=== PATIENT | female | born 1995 | race Hispanic/Latino ===

== ENCOUNTER 2020-07-17 11:51 | Emergency (ER) | payer OTHER ==
[2020-07-17 11:57] VITALS: BP 138/79
[2020-07-17] MEDS ORDERED: LIDOCAINE VISCOUS 2% 15 ML ORAL LIQD PO ONE (12:06)
[2020-07-17] MEDS ORDERED: ALUM-MAG HYDROXIDE-SIMETHICONE 200-200-20MG/5ML ORAL LIQD 30 ML PO ONE (12:06)
[2020-07-17] MEDS ORDERED: FAMOTIDINE 20 MG TAB PO ONE (12:06)
--- NOTE | 2020-07-17 12:06 | Emergency Department Report ---
ED Chest Pain HPI - General Chief Complaint: Chest Pain Stated Complaint: CHEST PAIN; V/D Time Seen by Provider: 07/17/20 12:04 Source: patient Mode of arrival: Ambulatory Limitations: No Limitations - History of Present Illness Initial Comments: 24-year-old female presents with complaints of chest pain along with nausea and vomiting and diarrhea x yesterday. Patient describes the pain in her chest as stabbing and rates it as a 4/10 in severity. She denies any past heart history, history of DVT/PE, leg pain/swelling, fever/chills/sweats, hormone use, hemoptysis, or cough. No hematemesis/coffee-ground emesis or melena/hematochezia per patient. She also denies abdominal pain. She does have a history of GERD and states she is currently taking Protonix. She is unsure about recent sick contacts. - Related Data Previous Rx's Medication Instructions Recorded Last Taken Type Ondansetron [Zofran Odt] 4 mg PO Q8HR PRN #6 tab.rapdis 07/17/20 Unknown Rx Sucralfate [Carafate] 1 gm PO Q6HR 4 Days #20 tablet 07/17/20 Unknown Rx Heart Score - HEART Score History: Slightly suspicious EKG: Normal Age: < 45 Risk factors: 1-2 risk factors Troponin: < normal limit HEART Score: 1 - Critical Actions Critical Actions: 0-3 pts:0.9-1.7%risk of adverse cardiac event.Candidate for discharge ED Review of Systems ROS: Stated complaint: CHEST PAIN; V/D Other details as noted in HPI Constitutional: denies: chills, diaphoresis, fever, malaise, weakness ENT: denies: throat pain Respiratory: denies: cough, shortness of breath Cardiovascular: chest pain. denies: palpitations, edema, syncope Endocrine: denies: excessive sweating Gastrointestinal: nausea, vomiting Genitourinary: denies: urgency, dysuria, frequency, hematuria Musculoskeletal: denies: back pain Skin: denies: change in color Neurological: denies: headache, weakness ED Past Medical Hx - Past Medical History Hx GERD: Yes - Surgical History Past Surgical History?: No - Social History Smoking Status: Never Smoker Substance Use Type: None - Medications Home Medications: Home Medications Medication Instructions Recorded Confirmed Last Taken Type Ondansetron [Zofran Odt] 4 mg PO Q8HR PRN #6 tab.rapdis 07/17/20 Unknown Rx Sucralfate [Carafate] 1 gm PO Q6HR 4 Days #20 tablet 07/17/20 Unknown Rx ED Physical Exam - General Limitations: No Limitations General appearance: alert, in no apparent distress, obese - Head Head exam: Present: atraumatic, normocephalic - Eye Eye exam: Present: normal appearance. Absent: scleral icterus - ENT ENT exam: Present: mucous membranes moist - Neck Neck exam: Present: normal inspection - Respiratory Respiratory exam: Present: normal lung sounds bilaterally. Absent: respiratory distress - Cardiovascular Cardiovascular Exam: Present: regular rate, normal rhythm. Absent: systolic murmur, diastolic murmur, rubs, gallop - GI/Abdominal GI/Abdominal exam: Present: soft, normal bowel sounds. Absent: distended, tenderness, guarding, rebound, rigid - Back Exam Back exam: Present: full ROM - Neurological Exam Neurological exam: Present: alert, oriented X3 - Psychiatric Psychiatric exam: Present: normal affect, normal mood - Skin Skin exam: Present: warm, dry, intact, normal color. Absent: rash, cyanosis, diaphoretic, ecchymosis ED Course Vital Signs 07/17/20 11:53 Temperature 98.1 F Pulse Rate 101 H Respiratory 18 Rate Blood Pressure 138/79 O2 Sat by Pulse 98 Oximetry ED Medical Decision Making - Lab Data Result diagrams: 07/17/20 12:08 07/17/20 12:08 Lab Results 07/17/20 07/17/20 07/17/20 Range/Units 12:08 12:08 12:08 WBC 9.4 (4.5-11.0) K/mm3 RBC 4.55 (3.65-5.03) M/mm3 Hgb 12.1 (10.1-14.3) gm/dl Hct 35.6 (30.3-42.9) % MCV 78 L (79-97) fl MCH 27 L (28-32) pg MCHC 34 (30-34) % RDW 14.7 (13.2-15.2) % Plt Count 291 (140-440) K/mm3 Lymph % (Auto) 28.7 (13.4-35.0) % [place] % (Auto) 3.0 (0.0-7.3) % Eos % (Auto) 1.7 (0.0-4.3) % Baso % (Auto) 0.3 (0.0-1.8) % Lymph # (Auto) 2.7 (1.2-5.4) K/mm3 [place] # (Auto) 0.3 (0.0-0.8) K/mm3 Eos # (Auto) 0.2 (0.0-0.4) K/mm3 Baso # (Auto) 0.0 (0.0-0.1) K/mm3 Seg Neutrophils % 66.3 (40.0-70.0) % Seg Neutrophils # 6.2 (1.8-7.7) K/mm3 Sodium 134 L (137-145) mmol/L Potassium 3.5 L (3.6-5.0) mmol/L Chloride 99.1 (98-107) mmol/L Carbon Dioxide 22 (22-30) mmol/L Anion Gap 16 mmol/L BUN 8 (7-17) mg/dL Creatinine 0.6 (0.6-1.2) mg/dL Estimated GFR > 60 ml/min BUN/Creatinine Ratio 13 % Glucose 246 H (65-100) mg/dL Calcium 9.3 (8.4-10.2) mg/dL Total Bilirubin 0.60 (0.1-1.2) mg/dL AST 45 H (5-40) units/L ALT 35 (7-56) units/L Alkaline Phosphatase 120 (35-129) units/L Troponin T < 0.010 (0.00-0.029) ng/mL Total Protein 8.2 (6.3-8.2) g/dL Albumin 4.0 (3.9-5) g/dL Albumin/Globulin Ratio 1.0 % Lipase 24 (13-60) units/L HCG, Qual Negative (Negative) - Radiology Data Radiology results: report reviewed CHEST 2 VIEWS INDICATION / CLINICAL INFORMATION: substernal chest pain. COMPARISON: 11/10/2011 FINDINGS: SUPPORT DEVICES: None. HEART / MEDIASTINUM: No significant abnormality. LUNGS / PLEURA: Mild increased interstitial prominence within the lower lungs with peribronchial cuffing. No pneumothorax. ADDITIONAL FINDINGS: No significant additional findings. IMPRESSION: 1. Mild increased interstitial prominence in the perihilar regions and lower lungs with peribronchial cuffing. - Medical Decision Making 24-year-old female presents with complaints of chest pain along with nausea and vomiting and diarrhea x yesterday. Patient describes the pain in her chest as stabbing and rates it as a 4/10 in severity. She denies any past heart history, history of DVT/PE, leg pain/swelling, fever/chills/sweats, hormone use, hemoptysis, or cough. No hematemesis/coffee-ground emesis or melena/hematochezia per patient. She also denies abdominal pain. She does have a history of GERD and states she is currently taking Protonix. She is unsure about recent sick contacts. Chest x-ray and labs are without acute abnormalities. Minimal hypokalemia noted-patient instructed to drink Pedialyte and eat a banana. She is stable for discharge home she is to follow-up with her primary care doctor within 3 days. Strict return precautions were discussed in detail with patient who verbalizes understanding peer Critical care attestation.: If time is entered above; I have spent that time in minutes in the direct care of this critically ill patient, excluding procedure time. ED Disposition Clinical Impression: Other chest pain, Viral syndrome Disposition: DC-01 TO HOME OR SELFCARE Is pt being admited?: No Condition: Stable Instructions: Nonspecific Chest Pain, Adult, Viral Illness, Adult, Chest Pain (ED) Prescriptions: Sucralfate [Carafate] 1 gm PO Q6HR 4 Days #20 tablet Ondansetron [Zofran Odt] 4 mg PO Q8HR PRN #6 tab.rapdis PRN Reason: Nausea Referrals: [facility] [Provider Group] - 3-5 Days Forms: Work/School Release Form(ED)
[2020-07-17 12:52] LABS: Basophils % (Auto) 0.3 % (0.0-1.8); Eosinophils # (Auto) 0.2 K/mm3 (0.0-0.4); Eosinophils % (Auto) 1.7 % (0.0-4.3); Hematocrit 35.6 % (30.3-42.9); Hemoglobin 12.1 gm/dl (10.1-14.3); Lymphocytes # (Auto) 2.7 K/mm3 (1.2-5.4); Lymphocytes % (Auto) 28.7 % (13.4-35.0); Mean Corpuscular HGB Conc 34 % (30-34); Mean Corpuscular Volume 78 fl (79-97); Monocytes # (Auto) 0.3 K/mm3 (0.0-0.8); Platelet Count 291 K/mm3 (140-440); Red Blood Count 4.55 M/mm3 (3.65-5.03); Red Cell Distribution Width 14.7 % (13.2-15.2)
[2020-07-17 13:11] LABS: Alanine Aminotransferase 35 units/L (7-56); Blood Urea Nitrogen 8 mg/dL (7-17); Calcium 9.3 mg/dL (8.4-10.2); Hemolysis Index 3
[2020-07-17 13:12] LABS: BUN/Creatinine Ratio 13
[2020-07-17] MEDS ORDERED: POTASSIUM CHLORIDE ER 20 MEQ TAB PO ONE (13:19)
--- NOTE | 2020-07-17 13:29 | XRay Report ---
CHEST 2 VIEWS INDICATION / CLINICAL INFORMATION: substernal chest pain. COMPARISON: 11/10/2011 FINDINGS: SUPPORT DEVICES: None. HEART / MEDIASTINUM: No significant abnormality. LUNGS / PLEURA: Mild increased interstitial prominence within the lower lungs with peribronchial cuff ing. No pneumothorax. ADDITIONAL FINDINGS: No significant additional findings. IMPRESSION: 1. Mild increased interstitial prominence in the perihilar regions and lower lungs with peribronchial cuffing. Signer Name: Magdiel Madison MD Signed: 07/17/2020 1:25 PM Workstation Name: [id number]
== END 2020-07-17 14:00 | disposition home or self-care (01) ==
LOC: ED 11:51
DX: R07.89 Other chest pain (principal); B34.9 Viral infection, unspecified; R11.2 Nausea with vomiting, unspecified; R19.7 Diarrhea, unspecified; K21.9 Gastro-esophageal reflux disease without esophagitis; Z79.899 Other long term (current) drug therapy
CPT/HCPCS: 36415; 71046; 80053; 83690; 84484; 84703; 85025

== ENCOUNTER 2020-10-23 17:46 | Emergency (ER) | payer SELFPAY ==
[2020-10-23 18:42] VITALS: BP 132/72
--- NOTE | 2020-10-23 18:46 | Emergency Department Report ---
ED General Adult HPI - General Stated complaint: RT EAR PAIN Time Seen by Provider: 10/23/20 18:32 - History of Present Illness Initial comments: 24-year-old female patient presents with complaints of right ear pain x1 day. Patient states she has a history of recurrent ear infections and was diagnosed with a ear infection at urgent care 1 week ago. She states she finished a Z-Alvin on Monday and her symptoms improved. She states her symp toms began to worsen yesterday and rates her current pain as a 7/10 in severity. She denies any ear drainage, fever/chills/sweats, hearing loss, headache, dental pain, or swollen lymph nodes. She is not currently following with an ENT specialist. No recent swimming -: Sudden - Related Data Previous Rx's Medication Instructions Recorded Last Taken Type Ondansetron [Zofran Odt] 4 mg PO Q8HR PRN #6 tab.rapdis 07/17/20 Unknown Rx Sucralfate [Carafate] 1 gm PO Q6HR 4 Days #20 tablet 07/17/20 Unknown Rx Doxycycline Monohydrate 100 mg PO BID 10 Days #20 capsule 10/23/20 Unknown Rx Ofloxacin 0.3% [Floxin 0.3% Otic] 10 drops OT QDAY 7 Days #1 bottle 10/23/20 Unknown Rx ED Review of Systems ROS: Stated complaint: RT EAR PAIN Other details as noted in HPI Constitutional: denies: chills, fever, malaise ENT: ear pain. denies: throat pain Respiratory: denies: cough, shortness of breath Gastrointestinal: denies: abdominal pain, nausea, vomiting Skin: denies: rash, change in color Neurological: headache Hematological/Lymphatic: denies: swollen glands ED Past Medical Hx - Past Medical History Hx GERD: Yes - Social History Smoking Status: Never Smoker Substance Use Type: None - Medications Home Medications: Home Medications Medication Instructions Recorded Confirmed Last Taken Type Ondansetron [Zofran Odt] 4 mg PO Q8HR PRN #6 tab.rapdis 07/17/20 Unknown Rx Sucralfate [Carafate] 1 gm PO Q6HR 4 Days #20 tablet 07/17/20 Unknown Rx Doxycycline Monohydrate 100 mg PO BID 10 Days #20 capsule 10/23/20 Unknown Rx Ofloxacin 0.3% [Floxin 0.3% Otic] 10 drops OT QDAY 7 Days #1 bottle 10/23/20 Unknown Rx ED Physical Exam - General General appearance: alert, in no apparent distress - Head Head exam: Present: atraumatic, normocephalic - Eye Eye exam: Present: normal appearance. Absent: scleral icterus - ENT ENT exam: Present: normal exam, normal orophraynx. Absent: other (No post tympanic membrane mass is noted) - Expanded ENT Exam Expanded Ear exam: Present: other (Tragal tenderness noted). Absent: auricular hematoma, auricular trauma TM/Canal exam: Bulging: Right TM, Canal Discharge: Right TM, Canal Tenderness: Right TM Mouth exam: Absent: drooling, trismus Throat exam: Negative: tonsillomegaly - Neck Neck exam: Present: normal inspection - Respiratory Respiratory exam: Present: normal lung sounds bilaterally. Absent: respiratory distress - Cardiovascular Cardiovascular Exam: Present: regular rate - GI/Abdominal GI/Abdominal exam: Present: soft - Neurological Exam Neurological exam: Present: alert, oriented X3, normal gait - Psychiatric Psychiatric exam: Present: normal affect, normal mood - Skin Skin exam: Present: warm, dry, intact, normal color. Absent: rash ED Course Vital Signs 10/23/20 10/23/20 18:40 18:42 Temperature 98.4 F Pulse Rate 83 Respiratory 18 Rate Blood Pressure 132/72 O2 Sat by Pulse 99 Oximetry ED Medical Decision Making - Medical Decision Making 24-year-old female patient presents with complaints of right ear pain x1 day. Patient states she has a history of recurrent ear infections and was diagnosed with a ear infection at urgent care 1 week ago. She states she finished a Z-Alvin on Monday and her symptoms improved. She states her symptoms began to worsen yesterday and rates her current pain as a 7/10 in severity. She denies any ear drainage, fever/chills/sweats, hearing loss, headache, dental pain, or swollen lymph nodes. She is not currently following with an ENT specialist. No recent swimming We will treat for otitis externa and resistant otitis media with Doxy and ofloxacin. Recommend follow-up with ENT within 3 days. Discussed signs and symptoms that should prompt immediate return to the emergency department in detail with patient who verbalizes understanding. Patient is well-appearing, her vitals are normal, she is stable for discharge home. Critical care attestation.: If time is entered above; I have spent that time in minutes in the direct care of this critically ill patient, excluding procedure time. ED Disposition Clinical Impression: Otitis externa Qualifiers: Otitis externa type: other infective Chronicity: acute Laterality: right Qualified Code(s): H60.391 - Other infective otitis externa, right ear Otitis media Qualifiers: Otitis media type: other nonsuppurative Chronicity: acute Laterality: right Recurrence: recurrent Qualified Code(s): H65.194 - Other acute nonsuppurative otitis media, recurrent, right ear Disposition: DC- TO HOME OR SELFCARE Is pt being admited?: No Condition: Stable Instructions: Otitis Externa, Otitis Media, Adult Prescriptions: Doxycycline Monohydrate 100 mg PO BID 10 Days #20 capsule Ofloxacin 0.3% [Floxin 0.3% Otic] 10 drops OT QDAY 7 Days #1 bottle Referrals: JAIME GORE MD [Staff Physician] - 2-3 Days
== END 2020-10-23 19:44 | disposition home or self-care (01) ==
LOC: ED 17:46
DX: H66.91 Otitis media, unspecified, right ear (principal); H60.91 Unspecified otitis externa, right ear; Z79.899 Other long term (current) drug therapy
CPT/HCPCS: 99282

== ENCOUNTER 2020-12-02 15:51 | Emergency (ER) | payer OTHER ==
[2020-12-02 17:05] VITALS: BP 117/60
[2020-12-02] MEDS ORDERED: IPRATROPIUM/ALBUTEROL SULFATE 3 ML AMPUL.NEB IH ONE (17:43)
[2020-12-02] MEDS ORDERED: dexAMETHasone 20 MG/5 ML VIAL IM ONE (17:43)
--- NOTE | 2020-12-02 17:50 | Emergency Department Report ---
- General Chief Complaint: Chest Pain Stated Complaint: CHEST TIGHTNESS, WHEEZING Time Seen by Provider: 12/02/20 17:39 Source: patient Mode of arrival: Ambulatory Limitations: No Limitations - History of Present Illness Initial Comments: Patient is a 24-year-old female presents emergency room complaints of URI symptoms that began 2-1/2 weeks ago. 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 She states that she is continue to have dry cough, wheezing, mild shortness of breath, chest tightness. She denies any productive cough, fever, vomiting, diarrhea, abdominal pain. Past medical history of asthma and states that she uses 2 inhalers. Allergy to amoxicillin and sulfa. Last menstrual cycle end of last month, she denies any possibility of . - Related Data Previous Rx's Medication Instructions Recorded Last Taken Type Ondansetron [Zofran Odt] 4 mg PO Q8HR PRN #6 tab.rapdis 07/17/20 Unknown Rx Sucralfate [Carafate] 1 gm PO Q6HR 4 Days #20 tablet 07/17/20 Unknown Rx Doxycycline Monohydrate 100 mg PO BID 10 Days #20 capsule 10/23/20 Unknown Rx Ofloxacin 0.3% [Floxin 0.3% Otic] 10 drops OT QDAY 7 Days #1 bottle 10/23/20 Unknown Rx Benzonatate [Tessalon Perles] 100 mg PO Q8HR PRN #14 capsule 12/02/20 Unknown Rx predniSONE [Deltasone] 40 mg PO QDAY 5 Days #10 tab 12/02/20 Unknown Rx Allergies Allergy/AdvReac Type Severity Reaction Status Date / Time amoxicillin Allergy Hives Verified 10/23/20 19:42 Sulfa (Sulfonamide Allergy Rash Verified 10/23/20 19:42 Antibiotics) ED Review of Systems ROS: Stated complaint: CHEST TIGHTNESS, WHEEZING Other details as noted in HPI Comment: All other systems reviewed and negative ED Past Medical Hx - Past Medical History Hx GERD: Yes - Surgical History Additional Surgical History: Tonsillectomy - Social History Smoking Status: Never Smoker - Medications Home Medications: Home Medications Medication Instructions Recorded Confirmed Last Taken Type Ondansetron [Zofran Odt] 4 mg PO Q8HR PRN #6 tab.rapdis 07/17/20 Unknown Rx Sucralfate [Carafate] 1 gm PO Q6HR 4 Days #20 tablet 07/17/20 Unknown Rx Doxycycline Monohydrate 100 mg PO BID 10 Days #20 capsule 10/23/20 Unknown Rx Ofloxacin 0.3% [Floxin 0.3% Otic] 10 drops OT QDAY 7 Days #1 bottle 10/23/20 Unknown Rx Benzonatate [Tessalon Perles] 100 mg PO Q8HR PRN #14 capsule 12/02/20 Unknown Rx predniSONE [Deltasone] 40 mg PO QDAY 5 Days #10 tab 12/02/20 Unknown Rx ED Physical Exam - General Limitations: No Limitations General appearance: alert, in no apparent distress - Head Head exam: Present: atraumatic, normocephalic - Eye Eye exam: Present: normal appearance - ENT ENT exam: Present: mucous membranes moist - Respiratory Respiratory exam: Present: wheezes (mild expiratory bilaterally). Absent: respiratory distress, rales, rhonchi, stridor, chest wall tenderness, accessory muscle use, decreased breath sounds, prolonged expiratory - Cardiovascular Cardiovascular Exam: Present: regular rate, normal rhythm, normal heart sounds. Absent: systolic murmur, diastolic murmur, rubs, gallop - Neurological Exam Neurological exam: Present: alert, oriented X3 - Psychiatric Psychiatric exam: Present: normal affect, normal mood - Skin Skin exam: Present: warm, dry, intact ED Course Vital Signs 12/02/20 12/02/20 17:04 17:05 Temperature 98.1 F 98.1 F Pulse Rate 104 H Respiratory 18 18 Rate Blood Pressure 117/60 Blood Pressure 117/60 [Left] O2 Sat by Pulse 97 Oximetry ED Medical Decision Making - Lab Data Vital Signs 12/02/20 12/02/20 17:04 17:05 Temperature 98.1 F 98.1 F Pulse Rate 104 H Respiratory 18 18 Rate Blood Pressure 117/60 Blood Pressure 117/60 [Left] O2 Sat by Pulse 97 Oximetry - Radiology Data Radiology results: report reviewed Ordering Physician: HEIDY SMITH Date of Service: 12/02/20 Procedure(s): XR chest routine 2V Accession Number(s): [id number] cc: HEIDY SMITH Fluoro Time In Minutes: CHEST PA AND LATERAL VIEWS INDICATION: chest pain. COMPARISON: 07/17/2020 FINDINGS: Support devices: None. Heart: Within normal limits. Lungs/Pleura: No acute pulmonary or pleural findings. IMPRESSION: 1. No acute findings. Signer Name: Raoul Wilhelm MD Signed: 12/02/2020 7:16 PM Workstation Name: [id number] Transcribed By: ALINE Dictated By: Raoul Wilhelm MD Electronically Authenticated By: Raoul Wilhelm MD Signed Date/Time: 12/02/201915 DD/ 15 TD/TT: - Medical Decision Making Patient is a 24-year-old female presents emergency room complaints of URI symptoms that began 2-1/2 weeks ago. 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 She states that she is continue to have dry cough, wheezing, mild shortness of breath, chest tightness. She denies any productive cough, fever, vomiting, diarrhea, abdominal pain. Past medical history of asthma and states that she uses 2 inhalers. Allergy to amoxicillin and sulfa. Last menstrual cycle end of last month, she denies any possibility of . Vitals are stable. On exam patient has mild expiratory wheezing bilaterally, no respiratory distress, no accessory muscle use. Chest x-ray: 1. No acute findings. Patient given nebulizer treatment and steroids IM with improvement of her symptoms. Breath sounds are clear bilaterally and wheezing has resolved. Symptoms could be related to her asthma, no clinical signs of bacterial pneumonia or bacterial bronchitis. Patient given prescription for medications. Advised patient Please take medication as prescribed. Follow-up with your primary care doctor. Please use your inhaler 3 times a day as needed for wheezing or shortness of breath. Return to emergency room for any new or worsening symptoms. Critical care attestation.: If time is entered above; I have spent that time in minutes in the direct care of this critically ill patient, excluding procedure time. ED Disposition Clinical Impression: Asthma Qualifiers: Asthma severity: unspecified severity Asthma persistence: unspecified Asthma complication type: with acute exacerbation Qualified Code(s): J45.901 - Unspecified asthma with (acute) exacerbation URI (upper respiratory infection) Qualifiers: URI type: unspecified URI Qualified Code(s): J06.9 - Acute upper respiratory infection, unspecified Disposition: TO HOME OR SELFCARE Is pt being admited?: No Does the pt Need Aspirin: No Condition: Stable Instructions: Asthma, Adult, Viral Respiratory Infection, Asthma (ED) Additional Instructions: Please take medication as prescribed. Follow-up with your primary care doctor. Please use your inhaler 3 times a day as needed for wheezing or shortness of breath. Return to emergency room for any new or worsening symptoms. Prescriptions: predniSONE [Deltasone] 40 mg PO QDAY 5 Days #10 tab Benzonatate [Tessalon Perles] 100 mg PO Q8HR PRN #14 capsule PRN Reason: cough Referrals: your, primary care doctor [Other] - 2-3 Days Time of Disposition: 19:42 Print Language: BULGARIAN
--- NOTE | 2020-12-02 19:21 | XRay Report ---
CHEST PA AND LATERAL VIEWS INDICATION: chest pain. COMPARISON: 07/17/2020 FINDINGS: Support devices: None. Heart: Within normal limits. Lungs/Pleura: No acute pulmonary or pleural findings. IMPRESSION: 1. No acute findings. Signer Name: Raoul Wilhelm MD Signed: 12/02/2020 7:16 PM Workstation Name: [id number]
== END 2020-12-02 20:05 | disposition home or self-care (01) ==
LOC: ED 15:51
DX: J45.909 Unspecified asthma, uncomplicated (principal); J06.9 Acute upper respiratory infection, unspecified; K21.9 Gastro-esophageal reflux disease without esophagitis; Z90.89 Acquired absence of other organs; Z79.899 Other long term (current) drug therapy; Z88.2 Allergy status to sulfonamides; Z88.1 Allergy status to other antibiotic agents
CPT/HCPCS: 71046; 94640; 96372; 99283; J1100

== ENCOUNTER 2021-06-28 12:13 | Emergency (ER) | payer OTHER ==
[2021-06-28] MEDS ORDERED: ASPIRIN 325 MG TAB PO ONE (13:23)
--- NOTE | 2021-06-28 13:34 | Emergency Department Report ---
ED General Adult HPI - General Chief complaint: Chest Pain Stated complaint: CHEST PAIN Time Seen by Provider: 06/28/21 12:53 Source: patient Mode of arrival: Ambulatory Limitations: No Limitations - History of Present Illness Initial comments: Patient is a 25-year-old female presents emergency room complaints of midsternal chest pain that began at 10 AM this morning. She reports that she was driving on her way to work. She states that she began having tingling sensation in her right arm. She denies any shortness of breath paresis. She denies any leg swelling or calf pain. She denies any recent surgery, recent travel, hormone use. She has a past medical history of diabetes or lipidemia. Allergy to amoxicillin and sulfa. She is a non-smoker. She reports that her mother had an OK in her 40s. - Related Data Previous Rx's Medication Instructions Recorded Last Taken Type Ondansetron [Zofran Odt] 4 mg PO Q8HR PRN #6 tab.rapdis 07/17/20 Unknown Rx Sucralfate [Carafate] 1 gm PO Q6HR 4 Days #20 tablet 07/17/20 Unknown Rx Doxycycline Monohydrate 100 mg PO BID 10 Days #20 capsule 10/23/20 Unknown Rx Ofloxacin 0.3% [Floxin 0.3% Otic] 10 drops OT QDAY 7 Days #1 bottle 10/23/20 Unknown Rx Benzonatate [Tessalon Perles] 100 mg PO Q8HR PRN #14 capsule 12/02/20 Unknown Rx predniSONE [Deltasone] 40 mg PO QDAY 5 Days #10 tab 12/02/20 Unknown Rx Allergies Allergy/AdvReac Type Severity Reaction Status Date / Time amoxicillin Allergy Hives Verified 10/23/20 19:42 Sulfa (Sulfonamide Allergy Rash Verified 10/23/20 19:42 Antibiotics) ED Review of Systems ROS: Stated complaint: CHEST PAIN Other details as noted in HPI Comment: All other systems reviewed and negative ED Past Medical Hx - Past Medical History Hx GERD: Yes - Surgical History Additional Surgical History: Tonsillectomy - Social History Smoking Status: Never Smoker - Medications Home Medications: Home Medications Medication Instructions Recorded Confirmed Last Taken Type Ondansetron [Zofran Odt] 4 mg PO Q8HR PRN #6 tab.rapdis 07/17/20 Unknown Rx Sucralfate [Carafate] 1 gm PO Q6HR 4 Days #20 tablet 07/17/20 Unknown Rx Doxycycline Monohydrate 100 mg PO BID 10 Days #20 capsule 10/23/20 Unknown Rx Ofloxacin 0.3% [Floxin 0.3% Otic] 10 drops OT QDAY 7 Days #1 bottle 10/23/20 Unknown Rx Benzonatate [Tessalon Perles] 100 mg PO Q8HR PRN #14 capsule 12/02/20 Unknown Rx predniSONE [Deltasone] 40 mg PO QDAY 5 Days #10 tab 12/02/20 Unknown Rx ED Physical Exam - General Limitations: No Limitations General appearance: alert, in no apparent distress - Head Head exam: Present: atraumatic, normocephalic - Eye Eye exam: Present: normal appearance - ENT ENT exam: Present: mucous membranes moist - Respiratory Respiratory exam: Present: normal lung sounds bilaterally. Absent: respiratory distress, wheezes, rales, rhonchi, stridor, chest wall tenderness, accessory muscle use, decreased breath sounds, prolonged expiratory - Cardiovascular Cardiovascular Exam: Present: regular rate, normal rhythm, normal heart sounds. Absent: systolic murmur, diastolic murmur, rubs, gallop - Neurological Exam Neurological exam: Present: alert, oriented X3 - Psychiatric Psychiatric exam: Present: normal affect, normal mood - Skin Skin exam: Present: warm, dry, intact ED Course Vital Signs 06/28/21 12:32 Temperature 97.8 F Pulse Rate 76 Respiratory 16 Rate Blood Pressure 127/91 O2 Sat by Pulse 98 Oximetry ED Medical Decision Making - Lab Data Result diagrams: 06/28/21 13:37 06/28/21 13:37 Lab Results 06/28/21 06/28/21 06/28/21 Range/Units 13:37 13:37 13:37 WBC 7.6 (4.5-11.0) K/mm3 RBC 4.82 (3.65-5.03) M/mm3 Hgb 12.3 (10.1-14.3) gm/dl Hct 38.9 (30.3-42.9) % MCV 81 (79-97) fl MCH 26 L (28-32) pg MCHC 32 (30-34) % RDW 14.1 (13.2-15.2) % Plt Count 373 (140-440) K/mm3 Lymph % (Auto) 42.0 H (13.4-35.0) % Delta % (Auto) 4.1 (0.0-7.3) % Eos % (Auto) 2.0 (0.0-4.3) % Baso % (Auto) 0.3 (0.0-1.8) % Lymph # (Auto) 3.2 (1.2-5.4) K/mm3 Delta # (Auto) 0.3 (0.0-0.8) K/mm3 Eos # (Auto) 0.2 (0.0-0.4) K/mm3 Baso # (Auto) 0.0 (0.0-0.1) K/mm3 Seg Neutrophils % 51.6 (40.0-70.0) % Seg Neutrophils # 3.9 (1.8-7.7) K/mm3 Sodium 136 L (137-145) mmol/L Potassium 4.2 (3.6-5.0) mmol/L Chloride 100.4 (98-107) mmol/L Carbon Dioxide 21 L (22-30) mmol/L Anion Gap 19 mmol/L BUN 10 (7-17) mg/dL Creatinine 0.6 (0.6-1.2) mg/dL Estimated GFR > 60 ml/min BUN/Creatinine Ratio 17 % Glucose 110 H (65-100) mg/dL Calcium 10.0 (8.4-10.2) mg/dL Total Bilirubin 0.30 (0.1-1.2) mg/dL AST 24 (5-40) units/L ALT 35 (7-56) units/L Alkaline Phosphatase 86 (35-129) units/L Troponin T < 0.010 (0.00-0.029) ng/mL Total Protein 8.2 (6.3-8.2) g/dL Albumin 4.5 (3.9-5) g/dL Albumin/Globulin Ratio 1.2 % HCG, Qual Negative (Negative) 06/28/21 Range/Units 16:11 WBC (4.5-11.0) K/mm3 RBC (3.65-5.03) M/mm3 Hgb (10.1-14.3) gm/dl Hct (30.3-42.9) % MCV (79-97) fl MCH (28-32) pg MCHC (30-34) % RDW (13.2-15.2) % Plt Count (140-440) K/mm3 Lymph % (Auto) (13.4-35.0) % Delta % (Auto) (0.0-7.3) % Eos % (Auto) (0.0-4.3) % Baso % (Auto) (0.0-1.8) % Lymph # (Auto) (1.2-5.4) K/mm3 Delta # (Auto) (0.0-0.8) K/mm3 Eos # (Auto) (0.0-0.4) K/mm3 Baso # (Auto) (0.0-0.1) K/mm3 Seg Neutrophils % (40.0-70.0) % Seg Neutrophils # (1.8-7.7) K/mm3 Sodium (137-145) mmol/L Potassium (3.6-5.0) mmol/L Chloride (98-107) mmol/L Carbon Dioxide (22-30) mmol/L Anion Gap mmol/L BUN (7-17) mg/dL Creatinine (0.6-1.2) mg/dL Estimated GFR ml/min BUN/Creatinine Ratio % Glucose (65-100) mg/dL Calcium (8.4-10.2) mg/dL Total Bilirubin (0.1-1.2) mg/dL AST (5-40) units/L ALT (7-56) units/L Alkaline Phosphatase (35-129) units/L Troponin T < 0.010 (0.00-0.029) ng/mL Total Protein (6.3-8.2) g/dL Albumin (3.9-5) g/dL Albumin/Globulin Ratio % HCG, Qual (Negative) - EKG Data EKG shows normal: sinus rhythm, axis, intervals, QRS complexes, ST-T waves Rate: normal - Radiology Data Radiology results: report reviewed Ordering Physician: KIMBERLEE PEDRAZA Date of Service: 06/28/21 Procedure(s): XR chest routine 2V Accession Number(s): [id number] cc: KIMBERLEE PEDRAZA Fluoro Time In Minutes: CHEST 2 VIEWS INDICATION / CLINICAL INFORMATION: Chest Pain. COMPARISON: 12/02/2020 FINDINGS: SUPPORT DEVICES: None. HEART / MEDIASTINUM: No significant abnormality. LUNGS / PLEURA: No significant pulmonary or pleural abnormality. No pneumothorax. ADDITIONAL FINDINGS: No significant additional findings. IMPRESSION: 1. No acute findings. Signer Name: Carlos Hitchcock DO Signed: 06/28/2021 2:25 PM Workstation Name: [id number] Transcribed By: MARCELLO Dictated By: CARLOS HITCHCOCK DO Electronically Authenticated By: CARLOS HITCHCOCK DO Signed Date/Time: 06/28/211424 DD/ 24 TD/TT: - Medical Decision Making Patient is a 25-year-old female presents emergency room complaints of midsternal chest pain that began at 10 AM this morning. She reports that she was driving on her way to work. She states that she began having tingling sensation in her right arm. She denies any shortness of breath paresis. She denies any leg swelling or calf pain. She denies any recent surgery, recent travel, hormone use. She has a past medical history of diabetes or lipidemia. Allergy to amoxicillin and sulfa. She is a non-smoker. She reports that her mother had an OK in her 40s. Vitals are normal. EKG is within normal limits. Labs are normal. Troponin is negative x2. Chest x-ray with no acute process. Heart score is 3, low risk for cardiac event. PERC criteria negative for PE, PE unlik piyush. Given patient's risk factors she will be referred to cardiology for outpatient work-up. Advised patient please follow-up with a pneumatic press hand. Please follow-up with your primary care doctor. Return to emergency room immediately for any new or worsening symptoms. Critical care attestation.: If time is entered above; I have spent that time in minutes in the direct care of this critically ill patient, excluding procedure time. ED Disposition Clinical Impression: Chest pain Qualifiers: Chest pain type: unspecified Qualified Code(s): R07.9 - Chest pain, unspecified Disposition: HOME / SELF CARE / HOMELESS Is pt being admited?: No Does the pt Need Aspirin: No Condition: Stable Instructions: Nonspecific Chest Pain, Adult Additional Instructions: please follow-up with a pneumatic press hand. Please follow-up with your primary care doctor. Return to emergency room immediately for any new or worsening symptoms. Referrals: PRIMARY CARE, [Primary Care Provider] - 3-5 Days MADDIE HENSON MD [Staff Physician] - 3-5 Days Time of Disposition: 17:09 Print Language: [place] HEART Score - HEART Score History: Moderately suspicious EKG: Normal Age: < 45 Risk factors: > 3 risk factors or hx of atherosclerotic disease Troponin: Troponin T < 0.010 ng/mL (0.00-0.029) 06/28/21 16:11 Troponin: < normal limit HEART Score: 3
[2021-06-28 14:01] LABS: Basophils % (Auto) 0.3 % (0.0-1.8); Eosinophils # (Auto) 0.2 K/mm3 (0.0-0.4); Hematocrit 38.9 % (30.3-42.9); Hemoglobin 12.3 gm/dl (10.1-14.3); Lymphocytes # (Auto) 3.2 K/mm3 (1.2-5.4); Mean Corpuscular HGB Conc 32 % (30-34); Mean Corpuscular Volume 81 fl (79-97); Monocytes # (Auto) 0.3 K/mm3 (0.0-0.8); Monocytes % (Auto) 4.1 % (0.0-7.3); Platelet Count 373 K/mm3 (140-440); Red Blood Count 4.82 M/mm3 (3.65-5.03); Red Cell Distribution Width 14.1 % (13.2-15.2)
[2021-06-28 14:18] LABS: Alanine Aminotransferase 35 units/L (7-56); Albumin 4.5 g/dL (3.9-5); Blood Urea Nitrogen 10 mg/dL (7-17); Hemolysis Index 7
[2021-06-28 14:20] LABS: BUN/Creatinine Ratio 17
--- NOTE | 2021-06-28 14:30 | XRay Report ---
CHEST 2 VIEWS INDICATION / CLINICAL INFORMATION: Chest Pain. COMPARISON: 12/02/2020 FINDINGS: SUPPORT DEVICES: None. HEART / MEDIASTINUM: No significant abnormality. LUNGS / PLEURA: No significant pulmonary or pleural abnormality. No pneumothorax. ADDITIONAL FINDINGS: No significant additional findings. IMPRESSION: 1. No acute findings. Signer Name: Carlos Hitchcock DO Signed: 06/28/2021 2:25 PM Workstation Name: [id number]
[2021-06-28 18:07] VITALS: BP 130/76
--- NOTE | 2021-06-29 12:08 | Electrocardiograph Report ---
[facility] Test Date: 2021-06-28 Test Time: 12:45:38 Pat Name: 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
== END 2021-06-28 18:07 | disposition home or self-care (01) ==
LOC: ED 12:13
DX: R07.9 Chest pain, unspecified (principal); Z88.0 Allergy status to penicillin; Z88.2 Allergy status to sulfonamides
CPT/HCPCS: 36415; 71046; 80053; 84484; 84703; 85025; 93005; 99284